=== PATIENT | male | born 1965 | race Caucasian/White ===

== ENCOUNTER → 2016-08-08 16:10 | Outpatient (CLI) | payer BC ==
[2015-09-07 06:47] VITALS: BMI 32.6
[~2016-08-08 16:10] MED LIST: ALLEGRA-D1 TAB.SR . PO; EFFIENT10 MG PO; HYZAAR 100-12.51 TAB PO; OMEPRAZOLE20 M1 PO
== END | disposition home or self-care (01) ==
LOC: D.US 11:30
DX: I70.219 Atherosclerosis of native arteries of extremities with intermittent claudication, unspecified extremity (principal)

== ENCOUNTER → 2017-09-25 06:07 | Outpatient (CLI) | payer MEDICARE ==
[~2017-09-25] VITALS: Ht 182.9 cm; Wt 111.4 kg
--- NOTE | ~2017-09-25 | HEMODYNAMI ---
PATIENT:BRIANA JERRY MEDICAL RECORD: [id number] : 69 LOCATION:[facility] ADMISSION DATE: 09/25/17 Generatedon:09/25/20178:40 Patient name: BRIANA JERRY Patient #: [id number] SSN: : 1965 Date of study: 09/25/2017 Page: Of Hemodynamic Procedure Report Patient Data Patient Demographics Procedure consent was obtained First Name: BRIANA Gender: Male Last Name: CLARITZA : 1965 Middle Initial: WHITE Age: 52 year(s) Patient #: [id number] Race: Additional ID: [id number] Contact details Address: [address] [place] [address] COURT State: [place] City: [facility] Zip code: [address] Past Medical History Allergies: No known allergies Admission Admission Data Admission Date: 09/25/2017 Admission Time: 6:07 Procedure Procedure Types Cath Procedure Diagnostic Procedure LHC LHC w/Coronaries PCI Procedure PTCA PTCA Initial Procedure Description Procedure Date Procedure Date: 09/25/2017 Procedure Start Time: 8:04 Procedure End Time: 8:40 Procedure Staff Name Function Yimi Curran MD Performing Physician Bony Montano RT Monitor Erica Villalobos RT Scrub Donato George RN Nurse Procedure Data Cath Procedure Fluoroscopy Diagnostic fluoroscopy Total fluoroscopy Time: 9.9 time: 9.9 min min Diagnostic fluoroscopy Total fluoroscopy dose: dose: 1507 mGy 1507 mGy Contrast Material Contrast Material Type Amount (ml) Isovue 300 129 Entry Location Entry Primary Successful Side Size Upsize Upsize Entry Closure Lenz ccessful Closure Location (Fr) 1 (Fr) 2 (Fr) Remarks Device Remarks Radial Right 6 Fr Mechanical artery Short Compression Diagnostic catheters Device Type Used For End Catheter Placement DIAGNOSTIC José Miguel 110cm LV Angiography 5Fr catheter ([id number]) Procedure Complications No complications Procedure Medications Medication Administration Route Dosage 0.9% NaCl I.V. 100 ml/hr Oxygen etCO2 Nasal cannula 2 l/min Heparin Flush Bag added to field 2 bags (1000units/500ml NS) Lidocaine 2% added to field 20 Radial Cocktail added to field 1 syringe (Verapomil 2mg/Nitro 400mcg/Heparin 1500units) Versed I.V. 2 mg Fentanyl I.V. 100 mcg Versed I.V. 1 mg Radial Cocktail I.A. 1 syringe (Verapomil 2mg/Nitro 400mcg/Heparin 1500units) Heparin Bolus I.V. 46832 units Versed I.V. 1 mg Plavix P.O. 600 mg Hemodynamics Rest Heart Rate: 62 (bpm) Pressure Samples Time Site Value (mmHg) Purpose Heart Use Rate(bpm) 8:08 LV 132/-4,16 EDP 82 8:08 LV 128/-2,17 Snapshot 78 Gradients Valve Time Site Site Mean SEP/DFP Peak To Heart Use 1 2 (mmHg) (sec/min) Peak Rate (mmHg) (bpm) Aortic 8:09 LV AO 55 Snapshots Pre Cath Intra NCS Post Cath Vital Signs Time Heart Resp SPO2 etCO2 NIBP (mmHg) Rhythm Pain Sedation Rate (ipm) (%) (mmHg) Status Level (bpm) 7:51:01 66 16 98 0 135/88(107) NSR 0 (11) 10(A) , No pain 7:55:54 66 12 100 45 122/86(108) NSR 0 (11) 10(A) , No pain 8:00:40 69 15 97 44.2 118/83(102) NSR 0 (11) 10(A) , No pain 8:06:27 69 12 99 45 114/76(101) NSR 0 (11) 10(A) , No pain 8:11:21 78 14 99 35.3 105/60(85) NSR 0 (11) 9(A) , No pain 8:16:12 73 13 95 42 119/69(84) NSR 0 (11) 9(A) , No pain 8:21:05 70 12 98 38.3 114/68(82) NSR 0 (11) 9(A) , No pain 8:26:00 71 14 99 39.8 111/73(89) NSR 0 (11) 10(A) , No pain 8:32:15 71 13 99 35.3 125/73(96) NSR 0 (11) 10(A) , No pain 8:36:04 68 13 100 42 112/81(97) NSR 0 (11) 10(A) , No pain Medications Time Medication Route Dose Verified Delivered Reason Note s Effectiveness by by 7:54:20 0.9% NaCl I.V. 100 Donato Donato Per physician ml/hr Doris George RN RN 7:54:30 Oxygen etCO2 2 l/min Donato Donato Per physician Nasal Doris George cannula RN RN 7:54:45 Heparin Flush added 2 bags Donato Donato used for Bag to Lorigan Lormisty procedure (1000units/500ml field RN RN NS) 7:55:53 Lidocaine 2% added 20ml Donato Donato for local to vial Lorigan Lorigan anesthetic field RN RN 7:56:03 Radial Cocktail added 1 Donato Donato used for (Verapomil to syringe Lorigan Doris procedure 2mg/Nitro field RN RN 400mcg/Heparin 1500units) 7:57:25 Versed I.V. 2 mg Donato Donato for sedation Doris George RN RN 7:57:33 Fentanyl I.V. 100 mcg Donato Donato for sedation Doris George RN RN 8:04:43 Versed I.V. 1 mg Donato Donato for sedation Doris George RN RN 8:07:29 Radial Cocktail I.A. 1 Donato Yimi for (Verapomil syringe Doris Curran MD vasodilation 2mg/Nitro RN 400mcg/Heparin 1500units) 8:17:03 Heparin Bolus I.V. 11,000 Donato Donato for units Doris George anticoagulation RN RN 8:27:22 Versed I.V. 1 mg Donato Donato for sedation Doris George RN RN 8:37:05 Plavix P.O. 600 mg Donato Donato for Doris George antiplatelet RN RN therapy Procedure Log Time Note 7:37:47 Informed consent obtained and on chart 7:38:19 Bony REVELES(R) sent for patient. Start room use. 7:38:20 Time tracking: Regular hours (M-F 7:00 - 5:00) 7:38:46 Plan of Care:Hemodynamics will remain stable., Cardiac rhythm will remain stable., Comfort level will be maintained., Respiratory function will remain adequate., Patient/ family verbilizes understanding of procedure., Procedure tolerated without complication., Recovers from procedure without complications.. 7:45:09 Patient received from Pre/Post Procedure Room to CCL 1 Alert and oriented. Tansferred to table in Supine position. 7:45:11 Warm blankets applied, and mikaela hugger turned on for patient comfort. 7:45:12 Correct patient and procedure confirmed by team. 7:45:14 ECG and BP/O2 sat monitors applied to patient. 7:45:17 Pre-procedure instructions explained to patient. 7:45:17 Pre-op teaching completed and patient verbalized understanding. 7:45:19 Family in waiting room. 7:45:21 Patient NPO since Midnight. 7:49:53 Vital chart was started 7:49:55 Baseline sample Acquired. 7:50:01 Rhythm: sinus rhythm 7:50:03 Full Disclosure recording started 7:50:24 H&P Date Dictated: 09/16/2017 Within 30 days and on chart., H&P Addendum completed by physician on day of procedure. (MUST COMPLETE FOR ALL OUTPATIENTS). 7:50:32 Is the patient allergic to Iodine/contrast media? No. 7:50:35 Is patient on blood thinner?No 7:50:40 Patient diabetic? No. 7:50:43 Previous problem with sedation/anesthesia? No ? 7:50:45 Snore? Yes 7:50:46 Sleep apnea? No 7:50:47 Deviated septum? No 7:50:48 Opens mouth fully? Yes 7:50:48 Sticks out tongue? Yes 7:50:51 Airway obstruction? No ? 7:50:54 Dentures? No ? 7:50:57 Pre procedure: right dorsailis pedis pulse 1+ Palpable, but thready & weak; easily obliterated 7:51:02 Modified Tai's test Ulnar < 7 seconds 7:51:05 Patient pain scale 0/10 ?. 7:51:28 IV patent on arrival in left hand with 0.9% NaCl at KVO. 7:51:43 Lab results completed and on chart. 7:51:49 Right Radial & Right Groin area was prepped with chlora-prep and draped in sterile fashion 7:51:50 Alarms reviewed by R. N. 7:51:51 Sharps counted by scrub and verified by R.N. 7:54:20 0.9% NaCl 100 ml/hr I.V. was administered by Donato George RN; Per physician; 7:54:30 Oxygen 2 l/min etCO2 Nasal cannula was administered by Donato George RN; Per physician; 7:54:45 Heparin Flush Bag (1000units/500ml NS) 2 bags added to field was administered by Donato George RN; used for procedure; 7:55:53 Lidocaine 2% 20ml vial added to field was administered by Donato George RN; for local anesthetic; 7:56:03 Radial Cocktail (Verapomil 2mg/Nitro 400mcg/Heparin 1500units) 1 syringe added to field was administered by Donato George RN; used for procedure; 7:56:34 Physician arrived 7:56:35 --------ALL STOP TIME OUT------ 7:56:36 Final Timeout: patient, procedure, and site verified with staff and physician. All members of the team are in agreement. 7:56:38 Right Radial & Right Groin site verified by team. 7:56:42 Physical assessment completed. ASA score P 2 - A patient with mild systemic disease as per Yimi Curran MD. 7:56:46 Sedation plan: IV Moderate Sedation Medication:Versed, Fentanyl 7:57:25 Versed 2 mg I.V. was administered by Donato George RN; for sedation; 7:57:28 Use device set Radial Dx or PCI 7:57:30 ACIST Syringe (46268) opened to sterile field. 7:57:30 Medline Cath Pack ([id number]) opened to sterile field. 7:57:31 Bag Decanter () opened to sterile field. 7:57:31 DIAGNOSTIC WIRE .035 260cm J wire (615059) opened to sterile field. 7:57:32 ACIST Hand Control (32372) opened to sterile field. 7:57:32 ACIST Manifold (50225) opened to sterile field. 7:57:33 Fentanyl 100 mcg I.V. was administered by Donato George RN; for sedation; 7:57:34 Tegaderm 4 x 4 (1626W) opened to sterile field. 7:57:35 MBrace Wrist Support ([id number]) opened to sterile field. 7:57:43 SHEATH 6Fr Prelude Radial ([id number]) opened to sterile field. 7:59:54 Zero performed for pressure channel P1 8:01:02 Zero performed for pressure channel P1 8:04:22 Procedure started. 8:04:34 Local anesthetic to right radial artery with Lidocaine 2% by Yimi Curran MD.INITIAL ACCESS ONLY 8:04:43 Versed 1 mg I.V. was administered by Donato George RN; for sedation; 8:04:43 A 6 Fr Short sheath was inserted into the Right Radial artery 8:07:10 A DIAGNOSTIC José Miguel 110cm 5Fr catheter (056972) was advanced over the wire and used for LV Angiography. 8:07:16 LV angiography performed. 8:07:18 LV gram done using MCKNIGHT 8:07:27 LV hemodynamics recorded. 8:07:29 Radial Cocktail (Verapomil 2mg/Nitro 400mcg/Heparin 1500units) 1 syringe I.A. was administered by Yimi Curran MD; for vasodilation; 8:08:56 EF : 55 % 8:09:55 RCA angiography performed. 8:13:06 INFLATOR Merit BasixCompak (SQ4506) opened to sterile field. 8:13:06 TUBING High Pressure Extension Tubing (Magdy) (VB7539D) opened to sterile field. 8:13:07 BMW 300cm [place] 2 J wire ([id number]) opened to sterile field. 8:13:10 Catheter removed. 8:13:20 Procedure type changed to Cath procedure, Diagnostic procedure, LHC, LHC w/Coronaries, PCI procedure, PTCA, PTCA Initial 8:13:46 GUIDE 6FR XBLAD 4.0 catheter ([id number]) opened to sterile field. 8:15:28 6 Fr XBLAD 4 guide catheter was inserted over the wire 8:15:37 BMW wire advanced. 8:17:03 Heparin Bolus 11,000 units I.V. was administered by Donato George RN; for anticoagulation; 8:27:22 Versed 1 mg I.V. was administered by Donato George RN; for sedation; 8:28:09 Inflate balloon Inflation number: 1 A EUPHORA 2.5 x 20 Balloon ([id number]) was prepped and advanced across the Mid LAD, then inflated to 15 PERICO for 0:20 (min:sec). 8:29:37 Inflation number: 2 The EUPHORA 2.5 x 20 Balloon ([id number]) was reinflated across the Mid LAD, to 15 PERICO for 0:29 (min:sec). 8:31:20 Inflation number: 3 The EUPHORA 2.5 x 20 Balloon ([id number]) was reinflated across the Mid LAD, to 15 PERICO for 0:43 (min:sec). 8:32:57 Balloon removed over the wire. 8:32:58 Wire removed. 8:33:01 Guide catheter removed. 8:33:39 Sheath removed intact; hemostasis achieved with Mechanical Compression to the Right Radial artery. 8:33:41 Procedure ended.(Physican Out) 8:33:50 Fluoroscopy time 09.90 minutes. 8:33:56 Fluoroscopy dose: 1507 mGy 8:33:56 Flurop Dose total: 1507 8:34:01 Contrast amount:Isovue 300 129ml. 8:34:02 Sharps counted by scrub and verified by R.N. 8:34:04 TR band inflated with 13cc of air. 8:34:05 Insertion/operative site no bleeding no hematoma. 8:34:17 Post right radial artery:stable 8:34:20 Post Procedure Pulses reassessed and unchanged 8:34:40 TR BAND Standard ([id number]) opened to sterile field. 8:34:46 Post procedure rhythm: sinus rhythm 8:34:47 Post procedure instruction explained to patient.Patient verbalizes understanding. 8:34:48 Procedure and supply charges have been captured, reviewed, submitted and are correct. 8:34:54 Procedure Complication : No complications 8:34:56 Vital chart was stopped 8:35:06 See physician's report for complete and final results. 8:35:08 Report given to Pre/Post Procedure Room. 8:35:13 Patient transfered to Pre/Post Procedure Room with Bed. 8:37:05 Plavix 600 mg P.O. was administered by Donato George RN; for antiplatelet therapy; 8:40:03 Procedure ended. 8:40:03 Full Disclosure recording stopped 8:40:17 ACC-PCI Only Patient was given prescriptions, or instructed by Yimi Curran MD to start/continue the following medications upon discharge: Plavix 8:40:19 End room use (Document Last) Intervention Summary Intervention Notes Time ActionType Lesion and Equipment Action# Pressure Duration Attributes Used 8:28:09 Inflate Mid LAD EUPHORA 1 15 00:20 balloon 2.5 x 20 Balloon ([id number]) 8:29:37 Reinflate Mid LAD EUPHORA 2 15 00:29 balloon 2.5 x 20 Balloon ([id number]) 8:31:20 Reinflate Mid LAD EUPHORA 3 15 00:43 balloon 2.5 x 20 Balloon ([id number]) Device Usage Item Name Manufacture Quantity Catalog Number Hospital Part Current M inimal Lot# / Charge Number Stock Stock Serial# Code ACIST Syringe Acist 1 60495 932498 456375 726880 2 0 (68026) Medical Systems Inc Medline Cath Cardinal 1 [id number] 336116 83805 234552 5 [employer] ([id number]) Bag Decanter Microtek 1 2001S 025199 15332 164404 5 () Medical Inc. DIAGNOSTIC WIRE St Garcia 1 552308 832702 992335 095570 3 0 .035 260cm J wire (529575) ACIST Hand Acist 1 47446 730538 944510 534133 5 Control (99837) [employer] Inc ACIST Manifold Acist 1 72240 945020 317660 191970 5 (43074) [employer] Systems Inc Tegaderm 4 x 4 3M 1 1626W 949869 885516 494319 5 (1626W) MBrace Wrist Advanced 1 140-0250-00 817114 55978 368857 5 Support Vascular ([id number]) Dynamics SHEATH 6Fr Merit 1 [id number] 767293 321324 783794 5 Prelude Radial Medical ([id number]) DIAGNOSTIC Terumo 1 40-4419 062486 106087 028993 5 José Miguel 110cm 5Fr catheter (326137) INFLATOR Merit Merit 1 [id number] 936244 026829 497981 1 5 [employer] (ZF9173) TUBING High Merit 1 [id number] 675951 91568 342890 1 0 Pressure Medical Extension Tubing (Curran) (GF9959N) BMW 300cm Reagan 1 [id number] 043148 322012 766675 5 [place] 2 J Vascular wire (0680056Z) GUIDE 6FR XBLAD Cardinal 1 [id number] 508018 829085 764734 3 4.0 catheter Health (25505359) EUPHORA 2.5 x Medtronic 1 [id number] 206090 644612 438392 5 [id number] 20 Balloon ([id number]) TR BAND Terumo 1 [id number] 680003 851925 696189 4 0 Standard ([id number]) Signature Audit Salome Stage Time Signature Unsigned Intra-Procedure 09/25/2017 Bony Montano RT(R) 8:40:43 AM Signatures Monitor : Bony Montano RT Signature : Date : Time : [id number] [place] [address]
[~2017-09-25 06:07] MED LIST changes: +BAYER CHEWABLE81 MG PO; +BENICAR40 MG PO; +KLONOPIN1 MG PO; +PLAVIX75 MG PO
[2017-09-25 06:55] VITALS: BP 116/77; Ht 182.9 cm; Wt 111.4 kg
[2017-09-25 07:06] LABS: BASOPHILS 0.5 % (0-2); EOSINOPHILS 3.6 % (0-7); HEMOGLOBIN 15.8 g/dL (13.5-17.5); IMMATURE GRANULOCYTES 0.7 % (0-5); LYMPHOCYTES 33.3 % (15-50); MCHC 35.1 g/dL (31.0-37.0); MCV 91.1 fL (80.0-100.0); MEAN PLATELET VOLUME 10.1 fL (7.4-10.4); MONOCYTES 12.3 % (2-11); NEUTROPHILS 49.6 % (40-80); RBC 4.94 10x6/uL (4.20-6.10); RDW 12.5 % (11.5-14.5); WBC 6.1 10x3/uL (4.8-10.8)
[2017-09-25 07:20] LABS: CALC OSMOLALITY 277 mosm/kg (275-300); CALCIUM 8.6 mg/dL (8.5-10.1); CARBON DIOXIDE 26.7 mmol/L (21.0-32.0); CHLORIDE - SERUM 104 mmol/L (98-107); GLUCOSE 126 mg/dL (74-106); POTASSIUM - SERUM 3.7 mmol/L (3.5-5.1); SODIUM 138 mmol/L (136-145); UREA NITROGEN 13 mg/dL (7-18); eGFR NON AFRICAN AMERICAN 84 mL/min (90-120)
[2017-09-25 07:23] LABS: PLATELET COUNT 252 10x3/uL (130-400)
== END | disposition home or self-care (01) ==
LOC: D.CATH 06:07
PROVIDERS: Internal Medicine Cardiovascular Disease
DX: I25.119 Atherosclerotic heart disease of native coronary artery with unspecified angina pectoris (principal); T82.855A Stenosis of coronary artery stent, initial encounter; Z01.812 Encounter for preprocedural laboratory examination

== ENCOUNTER 2018-03-02 20:11 | Emergency (ER) | payer MEDICARE ==
[~2018-03-02] VITALS: Ht 182.9 cm; Wt 90.9 kg
[2018-03-02 20:22] VITALS: Ht 182.9 cm; Wt 90.9 kg
[2018-03-02 20:43] VITALS: BP 131/89
== END 2018-03-02 20:36 | disposition home or self-care (01) ==
LOC: D.ER 20:11
DX: S61.012A Laceration without foreign body of left thumb without damage to nail, initial encounter (principal); W27.8XXA Contact with other nonpowered hand tool, initial encounter; Y93.89 Activity, other specified; Y92.019 Unspecified place in single-family (private) house as the place of occurrence of the external cause; I10 Essential (primary) hypertension

== ENCOUNTER 2018-05-01 05:30 | Day surgery (SDC) | payer BC ==
[~2018-05-01] VITALS: Ht 182.9 cm; Wt 109.5 kg
[2018-05-01 05:58] LABS: HEMATOCRIT 46.4 % (42.0-54.0); HEMOGLOBIN 16.5 g/dL (13.5-17.5); MCH 32.2 pg (26.0-34.0); MCHC 35.6 g/dL (31.0-37.0); MCV 90.6 fL (80.0-100.0); MEAN PLATELET VOLUME 10.1 fL (7.4-10.4); RBC 5.12 10x6/uL (4.20-6.10); RDW 12.8 % (11.5-14.5); WBC 6.5 10x3/uL (4.8-10.8)
[2018-05-01 06:24] VITALS: BP 126/81; Ht 182.9 cm; Wt 109.5 kg
== END 2018-05-01 12:50 | disposition home or self-care (01) ==
LOC: D.OPS 05:30
PROVIDERS: ATTEND Surgery
DX: T82.855A Stenosis of coronary artery stent, initial encounter (principal); I25.10 Atherosclerotic heart disease of native coronary artery without angina pectoris

== ENCOUNTER 2018-05-15 07:34 | Outpatient (CLI) | payer BC ==
[~2018-05-15] VITALS: Ht 182.9 cm; Wt 111.8 kg
--- NOTE | ~2018-05-15 | HEMODYNAMI ---
PATIENT:BRIANA JERRY MEDICAL RECORD: [id number] : 69 LOCATION:D.CAT ADMISSION DATE: 05/15/18 Generatedon:05/15/201810:04 Patient name: BRIANA JERRY Patient #: [id number] SSN: : 1965 Date of study: 05/15/2018 Page: Of Hemodynamic Procedure Report Patient Data Patient Demographics Procedure consent was obtained First Name: BRIANA Gender: Male Last Name: CLARITZA : 1965 Middle Initial: WHITE Age: 52 year(s) Patient #: [id number] Race: Additional ID: [id number] Contact details Address: [address] [place] [address] COURT State: [place] City: [facility] [place] Zip code: [address] Past Medical History Allergies: No known allergies Admission Admission Data Admission Date: 05/15/2018 Admission Time: 7:34 Weight (lbs.): 246.92 Weight (kg.): 112 Lab Results Lab Result Date: 05/15/2018 Lab Result Time: 0:00 Biochemistry Name Units Result Min Max BUN mg/dl 15 --(--*-)-- 7 18 Creatinine mg/dl 1.1 --(--*-)-- 0.6 1.3 CBC Name Units Result Min Max Hemoglobin g/dl 16.4 --(--*-)-- 13.5 17.5 Procedure Procedure Types Cath Procedure Diagnostic Procedure C [facility] w/Coronaries Procedure Description Procedure Date Procedure Date: 05/15/2018 Procedure Start Time: 9:47 Procedure End Time: 9:59 Procedure Staff Name Function Yimi Curran MD Performing Physician Abdias Ramírez RT Monitor Marky Moser RN Nurse Bobbi Little RT Scrub Procedure Data Cath Procedure Fluoroscopy Diagnostic fluoroscopy Total fluoroscopy Time: 2.5 time: 2.5 min min Diagnostic fluoroscopy Total fluoroscopy dose: 835 dose: 835 mGy mGy Contrast Material Contrast Material Type Amount (ml) Isovue 300 69 Entry Location Entry Primary Successful Side Size Upsize Upsize Entry Closure Lenz ccessful Closure Location (Fr) 1 (Fr) 2 (Fr) Remarks Device Remarks Femoral Right 6 Fr Mechanical artery Short Compression Estimated blood loss: 10 ml Diagnostic catheters Device Type Used For End Catheter Placement DIAGNOSTIC José Miguel 110cm Procedure 5Fr catheter ([id number]) Procedure Complications No complications Procedure Medications Medication Administration Route Dosage Oxygen etCO2 Nasal cannula 2 l/min Lidocaine 2% added to field 20 Heparin Flush Bag added to field 2 bags (1000units/500ml NS) 0.9% NaCl I.V. 100 ml/hr Radial Cocktail I.A. 1 syringe (Verapomil 2mg/Nitro 400mcg/Heparin 1500units) Versed I.V. 2 mg Fentanyl I.V. 100 mcg Versed I.V. 1 mg Fentanyl I.V. 50 mcg Hemodynamics Rest HGB: 16.4 (g/dl) Heart Rate: 0 (bpm) Pressure Samples Time Site Value (mmHg) Purpose Heart Use Rate(bpm) 9:51 LV 122/14,24 Snapshot 77 Gradients Valve Time Site Site Mean SEP/DFP Peak To Heart Use 1 2 (mmHg) (sec/min) Peak Rate (mmHg) (bpm) Aortic 9:52 LV AO 78 Snapshots Pre Cath Intra NCS Post Cath Vital Signs Time Heart Resp SPO2 etCO2 NIBP (mmHg) Rhythm Pain Sedation Rate (ipm) (%) (mmHg) Status Level (bpm) 9:29:50 62 18 97 30 142/98(108) NSR 0 (11) 10(A) , No pain 9:33:58 64 17 97 38.4 143/94(112) NSR 0 (11) 10(A) , No pain 9:38:08 67 15 96 39.1 130/91(105) NSR 0 (11) 10(A) , No pain 9:42:16 70 15 93 48.8 134/86(111) NSR 0 (11) 10(A) , No pain 9:46:28 70 18 96 51.8 129/80(114) NSR 0 (11) 9(A) , No pain 9:50:31 84 15 97 45.2 107/85(97) NSR 0 (11) 9(A) , No pain 9:54:33 76 14 94 45.1 122/79(98) NSR 0 (11) 9(A) , No pain 9:58:39 75 16 98 42.9 125/83(101) NSR 0 (11) 10(A) , No pain Medications Time Medication Route Dose Verified Delivered Reason Notes Effectiveness by by 9:41:18 Oxygen etCO2 2 l/min Yimi Buffie used for Nasal Magdy Moser RN procedure cannula 9:41:26 Lidocaine 2% added 20ml Yimi Yimi for local to vial Magdy Curran MD anesthetic field 9:41:33 Heparin Flush added 2 bags Yimi Yimi used for Bag to Magdy Curran MD procedure (1000units/500ml field NS) 9:41:44 0.9% NaCl I.V. 100 Yimi Buffie used for ml/hr Magdy Moser RN procedure 9:42:42 Versed I.V. 2 mg Yimi Buffie for sedation Magdy Moser RN 9:42:49 Fentanyl I.V. 100 mcg Yimi Buffie for sedation Magdy Moser RN 9:45:04 Versed I.V. 1 mg Yimi Buffie for sedation Magdy Moser RN 9:45:09 Fentanyl I.V. 50 mcg Yimi Buffie for sedation Magdy Moser RN 9:50:08 Radial Cocktail I.A. 1 Yimi Yimi for (Verapomil syringe Magdy Curran MD vasodilation 2mg/Nitro 400mcg/Heparin 1500units) Procedure Log Time Note 9:10:34 Marky Moser RN sent for patient. Start room use. 9:23:35 Time tracking: Regular hours (M-F 7:00 - 5:00) 9:23:38 Plan of Care:Hemodynamics will remain stable., Cardiac rhythm will remain stable., Comfort level will be maintained., Respiratory function will remain adequate., Patient/ family verbilizes understanding of procedure., Procedure tolerated without complication., Recovers from procedure without complications.. 9:28:34 Baseline sample Acquired. 9:28:41 Patient received from Pre/Post Procedure Room to CCL 2 Alert and oriented. Tansferred to table in Supine position. 9:28:42 Warm blankets applied, and mikaela hugger turned on for patient comfort. 9:28:42 Correct patient and procedure confirmed by team. 9:28:43 Signed procedure consent form obtained from patient. 9:28:44 ECG and BP/O2 sat monitors applied to patient. 9:28:45 Full Disclosure recording started 9:28:47 Vital chart was started 9:28:50 Baseline sample Acquired. 9:35:03 Rhythm: sinus rhythm 9:35:14 H&P Date Dictated: 05/12/2018 Within 30 days and on chart., H&P Addendum completed by physician on day of procedure. (MUST COMPLETE FOR ALL OUTPATIENTS). 9:35:15 Pre-procedure instructions explained to patient. 9:35:15 Pre-op teaching completed and patient verbalized understanding. 9:35:19 Family in waiting room. 9:35:21 Patient NPO since Midnight. 9:35:24 Is the patient allergic to Iodine/contrast media? No. 9:35:33 Is patient on blood thinner?No 9:35:35 Patient diabetic? No. 9:35:37 Previous problem with sedation/anesthesia? Yes Pt becomes agrressive with sedation. 9:35:38 Snore? Yes 9:35:40 Sleep apnea? No 9:36:06 Deviated septum? No 9:36:06 Opens mouth fully? Yes 9:36:07 Sticks out tongue? Yes 9:36:09 Airway obstruction? No ? 9:36:10 Dentures? No ? 9:36:13 Pre procedure: right dorsailis pedis pulse 1+ Palpable, but thready & weak; easily obliterated 9:36:18 Modified Tai's test Ulnar < 7 seconds 9:36:20 Patient pain scale 0/10 ?. 9:36:25 IV patent on arrival in left forearm with 0.9% NaCl at KVO. 9:36:29 Lab results completed and on chart. 9:36:35 Right Radial & Right Groin area was prepped with chlora-prep and draped in sterile fashion 9:36:37 Alarms reviewed by R. N. 9:36:38 Sharps counted by scrub and verified by R.N. 9:36:45 Use device set Radial Dx or PCI 9:36:47 Tegaderm 4 x 4 (1626W) opened to sterile field. 9:36:47 ACIST Manifold (67487) opened to sterile field. 9:36:48 ACIST Hand Control (56051) opened to sterile field. 9:36:49 ACIST Syringe (16459) opened to sterile field. 9:36:50 Medline Cath Pack ([id number]) opened to sterile field. 9:36:50 Bag Decanter () opened to sterile field. 9:36:51 DIAGNOSTIC WIRE .035 260cm J wire (226905) opened to sterile field. 9:36:51 MBrace Wrist Support ([id number]) opened to sterile field. 9:36:53 SHEATH 6FR Slender (80-4170) opened to sterile field. 9:38:02 NEEDLE Cook 21G 4cm Radial ([id number]) opened to sterile field. 9:40:53 Baseline sample Acquired. 9:41:18 Oxygen 2 l/min etCO2 Nasal cannula was administered by Marky Moser RN; used for procedure; 9:41:26 Lidocaine 2% 20ml vial added to field was administered by Yimi Curran MD; for local anesthetic; 9:41:26 Zero performed for pressure channel P1 9:41:33 Heparin Flush Bag (1000units/500ml NS) 2 bags added to field was administered by Yimi Curran MD; used for procedure; 9:41:44 0.9% NaCl 100 ml/hr I.V. was administered by Marky Moser RN; used for procedure; 9:42:09 --------ALL STOP TIME OUT------ 9:42:09 Final Timeout: patient, procedure, and site verified with staff and physician. All members of the team are in agreement. 9:42:12 Right Radial & Right Groin site verified by team. 9:42:17 Maximum allowable Isovue 300 dose 300ml. Physician notified. (300ml for normal creatinines. For patients with creatinine of 1.7 or higher multiply weight(kg) x 5 divided by creatinine.) 9:42:21 Fire Safety Assessment: A--An alcohol-based skin anteseptic being used preoperatively., C--Open oxygen or nitrous oxide is being used., D--An ESU, laser, or fiber-optic light is being used. 9:42:24 Physical assessment completed. ASA score P 2 - A patient with mild systemic disease as per Yimi Curran MD. 9:42:27 Sedation plan: IV Moderate Sedation Medication:Versed, Fentanyl 9:42:42 Versed 2 mg I.V. was administered by Marky Moser RN; for sedation; 9::49 Fentanyl 100 mcg I.V. was administered by Marky Moser RN; for sedation; 9:43:00 Patient Weight : 246.92 lbs 9:43:21 Lab Result : Hemoglobin 16.4 g/dl 9:43:21 Lab Result : Creatinine 1.1 mg/dl 9:43:21 Lab Result : BUN 15 mg/dl 9:45:04 Versed 1 mg I.V. was administered by Marky Moser RN; for sedation; 9:45:09 Fentanyl 50 mcg I.V. was administered by Marky Moser RN; for sedation; 9:47:38 Procedure started. 9:47:43 Local anesthetic to right radial artery with Lidocaine 2% by Yimi Curran MD.INITIAL ACCESS ONLY 9:49:49 A 6 Fr Short sheath was inserted into the Right Femoral artery 9:50:08 Radial Cocktail (Verapomil 2mg/Nitro 400mcg/Heparin 1500units) 1 syringe I.A. was administered by Yimi Curran MD; for vasodilation; 9:50:17 A DIAGNOSTIC José Miguel 110cm 5Fr catheter ([id number]) was advanced over the wire and used for Procedure. 9:51:42 LV angiography performed. 9:51:44 LV gram done using MCKNIGHT 9:52:08 EF : 60 % 9:52:20 LV hemodynamics recorded. 9:52:41 Injector settings: Ml/sec: 5, Volume: 15, 9:53:01 RCA angiography performed. 9:54:01 LCA angiography performed. 9:56:16 Catheter removed. 9:56:31 TR BAND Standard ([id number]) opened to sterile field. 9:56:45 Sheath removed intact; hemostasis achieved with Mechanical Compression to the Right Femoral artery. 9:56:47 Procedure ended.(Physican Out) 9:57:57 Fluoroscopy time 02.50 minutes. 9:58:01 Fluoroscopy dose: 835 mGy 9:58:01 Flurop Dose total: 835 9:58:05 Contrast amount:Isovue 300 69ml. 9:58:06 Sharps counted by scrub and verified by R.N. 9:58:16 TR band inflated with 12cc of air. 9:58:18 Insertion/operative site no bleeding no hematoma. 9:58:19 Post Procedure Pulses reassessed and unchanged 9:58:21 Post-procedure physical assessment completed. ASA score P 2 - A patient with mild systemic disease as per Yimi Curran MD. 9:58:24 Post procedure rhythm: unchanged. 9:58:26 Estimated blood loss: 10 ml 9:58:28 Post procedure instruction explained to patient.Patient verbalizes understanding. 9:58:28 Patient needs reinforcement of post procedure teaching. 9:58:45 Procedure and supply charges have been captured, reviewed, submitted and are correct. 9:58:47 Procedure Complication : No complications 9:58:51 Vital chart was stopped 9:58:51 See physician's report for complete and final results. 9:59:05 Report given to Pre/Post Procedure Room. 9:59:07 Patient transfered to Pre/Post Procedure Room with Stretcher. 9:59:34 Procedure ended. 9:59:34 Full Disclosure recording stopped 10:02:36 End room use (Document Last) Device Usage Item Name Manufacture Quantity Catalog Hospital Part Current Minimal Lot# / Number Charge Number Stock Stock Serial# Code Tegaderm 4 3M 1 1626W [id number] 5 x 4 (1626W) ACIST Acist 1 39864 075392 018964 854709 5 Manifold Medical (39374) Systems Inc ACIST Hand Acist 1 20303 237101 896391 435784 5 Control Medical (49976) Systems Inc ACIST Acist 1 87234 985433 107086 099779 20 Syringe Medical (42197) Systems Inc Medline Medline 1 [id number] 871560 45259 035028 5 Cath Pack ([id number]) Bag Microtek 1 2001S 340468 11231 337634 5 Decanter Medical Inc. () DIAGNOSTIC St Garcia 1 243494 635687 833748 903783 30 WIRE .035 260cm J wire (255002) MBrace Advanced 1 140-0250-00 728891 32253 269443 5 Wrist Vascular Support Dynamics ([id number]) SHEATH 6FR Terumo 1 [id number] 134602 897224 939696 5 Slender (80-1060) NEEDLE [employer] Medical 1 [id number] 939183 417086 632233 5 21G 4cm Radial (H95648) DIAGNOSTIC Terumo 1 405023 276592 816891 174248 5 José Miguel 110cm 5Fr catheter (758291) TR BAND Terumo 1 [id number] 325203 318684 430246 40 Standard ([id number]) Signature Audit [place] Stage Time Signature Unsigned Intra-Procedure 05/15/2018 Abdias Ramírez 10:04:09 AM RT(R) Signatures Monitor : Abdias Ramírez RT Signature : Date : Time : [address] [place] [address]
[2018-05-15] MEDS ORDERED: COZAAR100 MG PO (07:58)
[2018-05-15] MEDS ORDERED: HYDROCHLOROTH12.5 M1 PO (07:59)
[2018-05-15] MEDS ORDERED: DEXILANT60 MG PO (07:59)
[2018-05-15 08:00] VITALS: BP 131/92; Ht 182.9 cm; Wt 111.8 kg
[2018-05-15 08:18] LABS: BASOPHILS 0.7 % (0-2); HEMATOCRIT 45.5 % (42.0-54.0); HEMOGLOBIN 16.4 g/dL (13.5-17.5); IMMATURE GRANULOCYTES 0.3 % (0-5); LYMPHOCYTES 27.6 % (15-50); MCV 88.7 fL (80.0-100.0); MEAN PLATELET VOLUME 10.3 fL (7.4-10.4); MONOCYTES 12.6 % (2-11); NEUTROPHILS 54.8 % (40-80); PLATELET COUNT 232 10x3/uL (130-400); RBC 5.13 10x6/uL (4.20-6.10); RDW 12.5 % (11.5-14.5)
[2018-05-15 08:27] LABS: CALC OSMOLALITY 278 mosm/kg (275-300); CALCIUM 8.8 mg/dL (8.5-10.1); CARBON DIOXIDE 27.7 mmol/L (21.0-32.0); CHLORIDE - SERUM 101 mmol/L (98-107); CREATININE - SERUM 1.1 mg/dL (0.6-1.3); POTASSIUM - SERUM 3.6 mmol/L (3.5-5.1); SODIUM 136 mmol/L (136-145); UREA NITROGEN 15 mg/dL (7-18); eGFR NON AFRICAN AMERICAN 75 mL/min (90-120)
[2018-05-15 08:32] LABS: GLUCOSE 209 mg/dL (74-106)
--- NOTE | 2018-05-15 10:25 | NUR ---
2L NC, NO RESP DISTRESS. RIGHT WRIST TR BAND CDI, NO BLEEDING OR HEMATOMA NOTED. NO C/O PAIN OR NAUSEA. VSS. CALL LIGHT WITHIN REACH.
--- NOTE | 2018-05-15 10:55 | NUR ---
SIPPING ON DRINK AND EATING SANDWICH WITH NO C/O NAUSEA. RIGHT WRIST TR BAND CDI, NO BLEEDING OR HEMATOMA NOTED. VSS. WILL CONTINUE TO MONITOR.
--- NOTE | 2018-05-15 11:09 | NUR ---
3CC OF AIR REMOVED FROM TR BAND WITH NO BLEEDING NOTED. VSS. WILL MONITOR CLOSELY FOR BLEEDING.
--- NOTE | 2018-05-15 11:25 | NUR ---
3CC OF AIR REMOVED FROM TR BAND WITH NO BLEEDING NOTED.
--- NOTE | 2018-05-15 11:45 | NUR ---
3CC OF AIR REMOVED FROM TR BAND WITH NO BLEEDING NOTED. LEFT PIV D/C'D WITH CATHETER INTACT, BAND AID TO SITE. UP TO BEDSIDE TO GET DRESSED.
[2018-05-15] MEDS ORDERED: ISOSORBIDE MONO30 M1 PO (11:50)
--- NOTE | 2018-05-15 11:52 | NUR ---
REMAINING AIR REMOVED FROM TR BAND WITH NO BLEEDING NOTED. DRESSING PLACED TO SITE. DISCHARGE INSTRUCTIONS ALONG WITH IMDUR PRESCRIPTION GIVEN TO PT AND , BOTH VERBALIZED UNDERSTANDING.
--- NOTE | 2018-05-15 12:03 | NUR ---
TAKEN OUT VIA WHEELCHAIR BY CATH ENERGY PROJECT MANAGER. LEFT FACILITY WITH FAMILY AND ALL PERSONAL BELONGINGS.
== END 2018-05-15 12:03 | disposition home or self-care (01) ==
LOC: D.CATH 07:34
PROVIDERS: ATTEND Internal Medicine Cardiovascular Disease
DX: I25.110 Atherosclerotic heart disease of native coronary artery with unstable angina pectoris (principal); T82.855A Stenosis of coronary artery stent, initial encounter; Z01.812 Encounter for preprocedural laboratory examination